=== PATIENT | male | born 1975 | race Caucasian/White ===

== ENCOUNTER 2018-10-28 17:18 | Emergency (ER) | payer BC ==
[~2018-10-28] VITALS: Ht 185.4 cm; Wt 113.4 kg
[2018-10-28] MEDS ORDERED: KETOROLAC TROMETHAMINE 60 MG/2 ML VIAL IM ONE (17:30)
[2018-10-28] MEDS ORDERED: HYDROCODONE/APAP 5MG-325MG TAB PO ONE (17:30)
[2018-10-28] MEDS ORDERED: ONDANSETRON HCL 4 MG ORAL DISINTEGRATING TAB PO ONE (17:30)
--- NOTE | 2018-10-28 18:40 | Diagnostic Imaging Report ---
LUMBAR SPINE X-RAY - 3 VIEWS HISTORY: Left-sided back pain COMPARISON: None available. FINDINGS: Bones: No acute displaced fracture. Osseous alignment is within normal limits. Joints: Moderate degenerative changes at T10-T11, T11-T12. Mild disc space narrowing and facet arthrosis at L5-S1 resulting in foraminal narrowing. Soft tissues: The soft tissues appear unremarkable. IMPRESSION: Foraminal narrowing at L5-S1 may correlate with this patient's symptoms. Signed by: Dr. Maris Ibrahim M.D. on 10/28/2018 6:37 PM
== END 2018-10-28 19:03 | disposition home or self-care (01) ==
LOC: FSED 17:18
DX: M54.41 Lumbago with sciatica, right side (principal); M54.16 Radiculopathy, lumbar region; M51.26 Other intervertebral disc displacement, lumbar region
CPT/HCPCS: 72100; 99284; J1885; Q0162